=== PATIENT | male | born 1985 | race Two or more races ===

== ENCOUNTER 2024-04-13 21:20 | Emergency (ER) | payer SELFPAY ==
[~2024-04-13] VITALS: Ht 170.2 cm; Wt 87.2 kg
[2024-04-13 22:45] VITALS: BP 131/78; PULSE 90; RESP 20; O2SAT 97
[2024-04-13] MEDS: ACETAMINOPHEN 325 MG TAB PO ONE (22:56)
[2024-04-13 23:30] VITALS: TEMP 99.6
[2024-04-13 23:30] LABS: Rapid Influenza B Negative (Negative)
[2024-04-13 23:31] LABS: Rapid Influenza A Positive (Negative)
[2024-04-13] MEDS ORDERED: IBUP-1456 PO (23:33)
[2024-04-13] MEDS ORDERED: OSEL75CA5 PO (23:33)
--- NOTE | 2024-04-13 23:33 | ED.PDOC ---
Eye-HPI HPI Comments This is a 38-year-old male presents to the ED with flu-like symptoms. Patient is complaining of cough, fever max temp of 103 at home measured. Also notes throat pain, nausea, and headache. Chest pain, difficulty breathing, shortness of breath, vomiting or diarrhea Chief Complaint: Flu like Time Seen by MD: 21:30 Reviewed Notes: Nurses Notes, Medications, Allergies Allergies: Coded Allergies: No Known Drug Allergy (Verified Allergy, Unknown, 04/13/24) Home Meds Active Scripts Ibuprofen (Ibuprofen) 800 Mg Tab, 1 TAB PO TID PRN for 3 Days, #9 TAB Prov:YEVGENIY DUMONT COMMUNITY NURSE 04/13/24 Oseltamivir Phosphate (Tamiflu) 75 Mg Cap, 1 CAP PO BID for 5 Days, #10 CAP Prov:YEVGENIY DUMONT COMMUNITY NURSE 04/13/24 Information Source: Patient Mode of Arrival: Ambulatory Past Medical History PAST MEDICAL HISTORY: Denies Surgical History: Denies all surgeries Family History Family History: Reviewed,noncontributory to illness Social History Smoker: Non-Smoker Alcohol: Denies ETOH Use Drugs: Denies Drug Use Constitutional: reports: chills, fatigue, fever; denies: diaphoresis, malaise, sweats, weakness, others EENTM: reports: nasal discharge, throat pain; denies: blurred vision, double vision, ear bleeding, ear discharge, ear drainage, ear pain, ear ringing, eye pain, eye redness, hearing loss, mouth pain, mouth swelling, nose bleeding, nose congestion, nose pain, photophobia, tearing, throat swelling, voice changes, others Respiratory: reports: cough; denies: hemoptysis, orthopnea, SOB at rest, shortness of breath, SOB with excertion, stridor, wheezing, others Cardiovascular: denies: chest pain, dizzy spells, diaphoresis, Dyspnea on exertion, edema, irregular heart beat, left arm pain, lightheadedness, palpitations, PND, syncope, others Gastrointestinal: denies: abdomen distended, abdominal pain, blood streaked bowels, constipated, diarrhea, dysphagia, difficulty swallowing, hematemesis, melena, nausea, poor appetite, poor fluid intake, rectal bleeding, rectal pain, vomiting, others Genitourinary: denies: burning, dysuria, flank pain, frequency, hematuria, incontinence, penile discharge, penile sore, pain, testicle pain, testicle swelling, urgency, others Neurological: denies: dizziness, fainting, headache, left sided numbness, left sided weakness, numbness, paresthesia, pre-existing deficit, right sided numbness, right sided weakness, seizure, speech problems, tingling, tremors, weakness, others Musculoskeletal: denies: back pain, gout, joint pain, joint swelling, muscle pain, muscle stiffness, neck pain, others Integumetry: denies: bruises, change in color, change in hair/nails, dryness, laceration, lesions, lumps, rash, wounds, others Allergic/Immunocompromised: denies: Difficulty Healing, Frequent Infections, Hives, Itching, others Hematologic/Lymphatic: denies: anemia, blood clots, easy bleeding, easy bruising, swollen glands, others Endocrine: denies: excessive hunger, excessive sweating, excessive thirst, excessive urination, flushing, intolerance to cold, intolerance to heat, unexplained weight gain, unexplained weight loss, others Psychiatric: denies: anxiety, bipolar disorder, depression, hopeless, panic disorder, schizophrenia, sleepless, suicidal, others Physical Exam General Appearance: No Apparent Distress, Normal HEENT: Pharyngeal Erythema, TMs Normal Neck: Full Range of Motion, Non-Tender Respiratory: Lungs Clear, No Respiratory Distress, Normal Breath Sounds Cardiovascular: No Edema, No JVD, No Murmur, No Gallop, Normal Peripheral Pulses, Regular Rate/Rhythm Breast Exam: Deferred Gastrointestinal: No Organomegaly, Non Tender, No Pulsatile Mass, Normal Bowel Sounds, Soft Genitalia: Deferred Pelvic: Deferred Rectal: Deferred Extremities: Normal capillary refill, Normal inspection, Normal range of motion, Non-tender, No pedal edema Musculoskeletal : Apperance: Normal Neurologic: Alert, camera engineer II-XII nml as Tested, No Motor Deficits, Normal Affect, Normal Mood, No Sensory Deficits Cerebellar Function: Normal Reflexes: Normal Skin: Dry, Normal Color, Warm Lymphatic: No Adenopathy Was a procedure done? Was a procedure done?: No EENT DIFF Eye: N/A Ear: Otitis Media Sore Throat: Viral Pharyngitis X-Ray, Labs, Meds, VS Vital Signs Date Time Temp Pulse Resp B/P (MAP) Pulse Ox O2 Delivery O2 Flow Rate FiO2 04/13/24 23:30 99.6 04/13/24 22:56 100.9 04/13/24 22:45 90 20 97 Room Air* 0 21 04/13/24 22:45 100.9 90 20 131/78 (95) 97 100.9 04/13/24 21:57 100.9 90 20 131/78 (95) 96 Lab Test 04/13/24 23:00 Range/Units Influenza Type A Antigen Positive Negative Influenza Type B Antigen Negative Negative Current Medications Medications (Trade) Dose Ordered Sig/Corbin Route Start Time Stop Time Status Last Admin Acetaminophen (Tylenol Tablet) 650 mg ONCE ONCE PO 04/13/24 22:15 04/13/24 22:16 DC 04/13/24 22:56 X-Ray, Labs, Meds, VS Comment Influenza a positive. Trial Tamiflu. Increase p.o. fluids with electrolytes [id number] Tylenol or Motrin as needed for pain or fever per labeled dosing instructions. Follow up with your PCP in 2-3 days as necessary. ER return precautions given patient indicated understanding and agrees with discharge plan of care. Time of 1ST Reevaluation: 23:32 Reevaluation 1ST: Improved Patient Education/Counseling: Diagnosis, Treatment, Prognosis, Need For Follow Up Family Education/Counseling: No Family Present Departure 1 Departure Time of Disposition: 23:32 Impression: Primary Impression: Influenza A Disposition: 01 HOME / SELF CARE / HOMELESS Condition: Stable e-Prescriptions Ibuprofen (Ibuprofen) 800 Mg Tab 1 TAB PO TID PRN for 3 Days, #9 TAB Prov: YEVGENIY DUMONT 04/13/24 Oseltamivir Phosphate (Tamiflu) 75 Mg Cap 1 CAP PO BID for 5 Days, #10 CAP Prov: YEVGENIY DUMONT 04/13/24 Discharged With: Self Critical Care Note Critical Care Time?: No Stability Stability form required: No YEVGENIY DUMONT Apr 13, 2024 23:33
== END 2024-04-13 23:58 | disposition home or self-care (01) ==
LOC: ER 21:20
DX: J10.1 Influenza due to other identified influenza virus with other respiratory manifestations (principal); Z79.899 Other long term (current) drug therapy
CPT/HCPCS: 87804